=== PATIENT | male | born 1965 | race Caucasian/White ===

== ENCOUNTER 2017-07-09 08:03 | Emergency (ER) | payer BC ==
--- NOTE | 2017-07-09 08:13 | EDM.PDOC ---
ED HPI GENERAL MEDICAL PROBLEM - General Chief Complaint: Chest Pain Stated Complaint: CHEST PAIN Time Seen by Provider: 07/09/17 08:12 - History of Present Illness INITIAL COMMENTS - FREE TEXT/NARRATIVE: 51-year-old male presents emergency room with chest pain. This pain has been on and off for the last 5 days. Currently he is not having any chest pain. The patient has no history of heart problems in the family history of heart problems. He smokes occasionally one or 2 cigarettes a week. He does not take an aspirin a day but this is recommended. Patient hasn't had any URI symptoms or recent cough. He has hyperlipidemia currently not on treatment there working with diet on this. Family history remarkable for mother of breast cancer father has a bleeding disorder factor V he had testing and it was negative however has 2 sisters that are positive. 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 Cardiovascular History: Reports: None Respiratory History: Reports: None, Sleep Apnea Gastrointestinal History: Reports: None Other Genitourinary History: Vasectomy Neurological History: Reports: None Endocrine/Metabolic History: Reports: None Oncologic (Cancer) History: Reports: Other (See Below) Other Dermatologic History: Rosacea - Infectious Disease History Infectious Disease History: Reports: Shingles Other Infectious Disease History: Pt had onset of shingles 1 month ago - Past Surgical History HEENT Surgical History: GI Surgical History: Reports: Hernia Repair/Other Social & Family History - Family History Family Medical History: Noncontributory - Tobacco Use Smoking Status *Q: Never Smoker Used Tobacco, but Quit: Yes Second Hand Smoke Exposure: No - Alcohol Use Days Per Week of Alcohol Use: 1 Number of Drinks Per Day: 3 Total Drinks Per Week: 3 - Recreational Drug Use Recreational Drug Use: No Drug Use in Last 12 Months: No - Living Situation & Occupation Living situation: Reports: Single, with Significant Other, with Family Occupation: Employed ED ROS GENERAL - Review of Systems Review Of Systems: See Below Constitutional: Reports: No Symptoms HEENT: Reports: No Symptoms Respiratory: Reports: No Symptoms Cardiovascular: Reports: Chest Pain, Other Endocrine: Reports: No Symptoms GI/Abdominal: Reports: No Symptoms : Reports: No Symptoms Neurological: Reports: No Symptoms ED EXAM, GENERAL - Physical Exam Exam: See Below Exam Limited By: No Limitations General Appearance: Alert, No Apparent Distress Head: Atraumatic, Normocephalic Neck: Normal Inspection, Supple, Non-Tender, Full Range of Motion Respiratory/Chest: No Respiratory Distress, Lungs Clear, Normal Breath Sounds Cardiovascular: Normal Peripheral Pulses, Regular Rate, Rhythm, No Edema, No Murmur GI/Abdominal: Normal Bowel Sounds, Soft, Non-Tender Back Exam: Normal Inspection. No: CVA Tenderness (L), CVA Tenderness (R) Extremities: Normal Inspection, No Pedal Edema Neurological: Alert, Oriented, Normal Cognition Course - Vital Signs Last Recorded V/S: Last Vital Signs Temp 36.4 C 07/09/17 08:11 Pulse 79 07/09/17 08:11 Resp 18 07/09/17 08:11 BP 148/99 H 07/09/17 08:11 Pulse Ox 99 07/09/17 08:11 - Orders/Labs/Meds Orders: Active Orders 24 hr Category Date Time Status EKG Documentation Completion [RC] STAT Care 07/09/17 08:26 Active Chest 2V [CR] Stat Exams 07/09/17 08:24 Taken Labs: Laboratory Tests 07/09/17 07/09/17 07/09/17 Range/Units 08:15 08:15 08:15 WBC 5.14 (4.23-9.07) K/mm3 RBC 5.61 (4.63-6.08) M/mm3 Hgb 16.6 (13.7-17.5) gm/L Hct 48.1 (40.1-51.0) % MCV 85.7 (79.0-92.2) fl MCH 29.6 (25.7-32.2) pg MCHC 34.5 (32.2-35.5) g/dl RDW Std Deviation 40.8 (35.1-43.9) fL Plt Count 185 (163-337) K/mm3 MPV 11.0 (9.4-12.3) fl Neutrophils % (Manual) 59 (40-60) % Band Neutrophils % 0 (0-10) % Lymphocytes % (Manual) 37 (20-40) % Atypical Lymphs % 0 % Monocytes % (Manual) 2 (2-10) % Eosinophils % (Manual) 2 (0.8-7.0) % Basophils % (Manual) 0 L (0.2-1.2) Platelet Estimate Adequate RBC Morph Comment Normal D-Dimer, Quantitative 0.22 (0.19-0.59) mg/L Sodium 139 (136-145) mEq/L Potassium 4.0 (3.5-5.1) mEq/L Chloride 105 (98-107) mEq/L Carbon Dioxide 24 (21-32) mEq/L Anion Gap 14.0 (5-15) BUN 14 (7-18) mg/dL Creatinine 1.1 (0.7-1.3) mg/dL Est Cr Clr Drug Dosing 88.18 mL/min Estimated GFR (MDRD) > 60 (>60) mL/min BUN/Creatinine Ratio 12.7 L (14-18) Glucose 142 H (74-106) mg/dL Calcium 9.0 (8.5-10.1) mg/dL Total Bilirubin 0.8 (0.2-1.0) mg/dL AST 23 (15-37) U/L ALT 54 (16-63) U/L Alkaline Phosphatase 64 (46-116) U/L Troponin I < 0.017 (0.00-0.056) ng/mL Total Protein 6.9 (6.4-8.2) g/dl Albumin 3.9 (3.4-5.0) g/dl Globulin 3.0 gm/dL Albumin/Globulin Ratio 1.3 (1-2) - Re-Assessments/Exams Free Text/Narrative Re-Assessment/Exam: 07/09/17 10:14 2 view chest unremarkable laboratory evaluations entirely within normal limits d -dimer troponin negative. I discussed this with the patient and his recommended that he proceed with a stress test as the question has been asked the patient is willing to do this. Departure - Departure Time of Disposition: 10:15 Disposition: Home, Self-Care 01 Clinical Impression: Chest pain Referrals: Travis Molina MD [Primary Care Provider] - Forms: ED Department Discharge Additional Instructions: Return to the emergency room with any questions problems worsening symptoms. Follow-up for your stress test as directed. Follow-up with your regular physician a couple days after this is done to get the results. Start a baby aspirin daily 81 mg. The enteric-coated may minimize gastrointestinal side effects. - My Orders Last 24 Hours: My Active Orders 07/09/17 08:24 Chest 2V [CR] Stat 07/09/17 08:26 EKG Documentation Completion [RC] STAT - Assessment/Plan Last 24 Hours: My Active Orders 07/09/17 08:24 Chest 2V [CR] Stat 07/09/17 08:26 EKG Documentation Completion [RC] STAT
[2017-07-09 08:15] VITALS: BP 148/99
--- NOTE | 2017-07-09 10:12 | CR ---
Chest: Two views of the chest were obtained. Comparison: No prior chest x-ray. Heart size and mediastinum are normal. Lungs are clear. Minimal scoliosis is noted within the spine. Bony structures are otherwise unremarkable. Impression: 1. Nothing acute is identified on two-view chest x-ray. Diagnostic code #2
== END 2017-07-09 10:25 | disposition home or self-care (01) ==
LOC: JD.ED 08:03
DX: R07.9 Chest pain, unspecified (principal); Z87.891 Personal history of nicotine dependence; Z79.2 Long term (current) use of antibiotics; Z79.899 Other long term (current) drug therapy
CPT/HCPCS: 36415; 71046; 71046-26; 80053; 84484; 85025; 85379; 93005; 99283; 99285-25